=== PATIENT | female | born 1930 | race Caucasian/White ===

== ENCOUNTER 2019-01-28 08:52 | Inpatient (IN) | payer MEDICARE, MEDICAID ==
[~2019-01-28] VITALS: Ht 152.4 cm; Wt 71.7 kg
[2019-01-28] MEDS ORDERED: MORPHINE SULFATE 4 MG/ML CPJ (NOT FOR IM USE) IV STA (13:06)
[2019-01-28 13:36] LABS: BASOPHILS % 0.8 % (0.0-2.0); HEMATOCRIT. 39.5 % (36.0-48.0); HEMOGLOBIN. 13.1 g/dL (12.0-16.0); LYMPHOCYTES % 31.5 % (20.0-50.0); MEAN CORPUSCULAR VOLUME 87.2 fL (81.0-99.0); MEAN PLATELET VOLUME 9.6 fl (7.4-10.4); MONOCYTES % 7.9 % (2.0-8.0); NEUTROPHILS % 57.8 % (40.0-76.0); PLATELET 239 x1000/uL (130-400); RED BLOOD CELL COUNT 4.53 mill/uL (4.2-5.4); RED CELL DISTRIBUTION WIDTH 13.7 % (11.6-14.6)
[2019-01-28 13:40] LABS: CHLORIDE 104 mEq/L (98-107)
[2019-01-28] MEDS ORDERED: DEXTROSE 50% WATER 50ML SYRINGE IV PRN (14:15)
[2019-01-28] MEDS ORDERED: GUAIFENESIN 200MG/10ML SUGAR FREE UDC PO PRN (14:15)
[2019-01-28] MEDS ORDERED: ACETAMINOPHEN 325MG TABLET PO PRN (14:15)
[2019-01-28] MEDS ORDERED: DOCUSATE SODIUM 100MG CAPSULE PO PRN (14:15)
[2019-01-28] MEDS ORDERED: IPRATROPIUM/ALBUTEROL 0.5-3(2.5)MG/3ML NEB NEB PRN (14:15)
[2019-01-28] MEDS ORDERED: ONDANSETRON HCL 4MG/2ML INJ IV PRN (14:15)
[2019-01-28] MEDS ORDERED: NITROGLYCERIN 0.4MG TABLET SL SL PRN (14:15)
[2019-01-28] MEDS ORDERED: CLONIDINE 0.1MG TABLET PO PRN (14:15)
[2019-01-28] MEDS ORDERED: ZOLPIDEM TARTRATE 5MG TABLET PO PRN (14:15)
[2019-01-28] MEDS ORDERED: MAGNESIUM/ALUMINUM HYDROXIDE/SIMETHICONE 30ML UDC PO PRN (14:15)
[2019-01-28 16:51] VITALS: BP 156/60
[2019-01-28 16:54] VITALS: BP 156/60
[2019-01-28] MEDS: INSULIN LISPRO 100 UNITS/ML SUBCUT SCH ×2 (17:50→21:00)
[2019-01-28] MEDS ORDERED: LOSA1TAB40 PO (18:06)
[2019-01-28] MEDS ORDERED: AMLO10TA80 PO (18:06)
[2019-01-28] MEDS ORDERED: METF-416 PO (18:06)
[2019-01-28] MEDS ORDERED: METO-539 PO (18:06)
[2019-01-28] MEDS ORDERED: ISOS30TA6 PO (18:06)
[2019-01-28] MEDS: BLOOD SUGAR DIAGNOSTIC STRIP TEST SCH ×2 (18:08→21:47)
[2019-01-28] MEDS: ENOXAPARIN 40MG/0.4ML SYR SUBCUT SCH (18:15)
[2019-01-28 20:40] VITALS: BP 143/64
[2019-01-28] MEDS: LISINOPRIL 20MG TABLET PO SCH (21:46)
[2019-01-28] MEDS: METOPROLOL TARTRATE 25MG TABLET PO SCH (21:46)
[2019-01-28] MEDS: FAMOTIDINE 20MG TABLET PO SCH (21:47)
[2019-01-29 00:03] LABS: CREATINE KINASE 66 IU/L (26-192)
[2019-01-29 00:05] LABS: CREATINE KINASE MB FRACTION < 1.0 ng/mL (0.5-3.6)
[2019-01-29 00:45] VITALS: BP 112/47
[2019-01-29 04:00] VITALS: BP 111/48
[2019-01-29] MEDS: INSULIN LISPRO 100 UNITS/ML SUBCUT SCH ×4 (07:10→20:55)
[2019-01-29] MEDS: BLOOD SUGAR DIAGNOSTIC STRIP TEST SCH ×4 (07:10→20:55)
[2019-01-29 08:20] LABS: CREATINE KINASE 63 IU/L (26-192)
[2019-01-29 08:21] LABS: CREATINE KINASE MB FRACTION < 1.0 ng/mL (0.5-3.6)
[2019-01-29 08:38] VITALS: BP 147/71
[2019-01-29] MEDS: METOPROLOL TARTRATE 25MG TABLET PO SCH ×2 (08:41→20:46)
[2019-01-29] MEDS: ASPIRIN 325MG EC TABLET PO SCH (08:41)
[2019-01-29] MEDS: LISINOPRIL 20MG TABLET PO SCH ×2 (08:41→20:45)
[2019-01-29] MEDS: MORPHINE SULFATE 2 MG/ML CPJ (NOT FOR IM USE) IV PRN (10:33)
[2019-01-29 11:58] VITALS: BP 100/46
[2019-01-29 15:25] VITALS: BP 126/49
[2019-01-29] MEDS: ENOXAPARIN 40MG/0.4ML SYR SUBCUT SCH (17:20)
[2019-01-29 20:00] VITALS: BP 145/49
[2019-01-29] MEDS: TRAMADOL 50MG TABLET PO PRN (20:46)
[2019-01-29] MEDS: FAMOTIDINE 20MG TABLET PO SCH (20:46)
[2019-01-30] VITALS: BP 128/52
[2019-01-30 04:00] VITALS: BP 112/52
[2019-01-30 07:07] LABS: BASOPHILS % 0.8 % (0.0-2.0); EOSINOPHILS % 2.6 % (0.0-5.0); HEMATOCRIT. 36.5 % (36.0-48.0); LYMPHOCYTES % 32.7 % (20.0-50.0); MEAN CORPUSCULAR HEMOGLOBIN 28.7 pg (28.0-32.0); MEAN CORPUSCULAR VOLUME 87.1 fL (81.0-99.0); MEAN PLATELET VOLUME 10.3 fl (7.4-10.4); MONOCYTES % 8.9 % (2.0-8.0); PLATELET 206 x1000/uL (130-400); RED BLOOD CELL COUNT 4.19 mill/uL (4.2-5.4); RED CELL DISTRIBUTION WIDTH 13.8 % (11.6-14.6)
[2019-01-30] MEDS: BLOOD SUGAR DIAGNOSTIC STRIP TEST SCH ×4 (07:20→21:00)
[2019-01-30 07:23] LABS: CHLORIDE 107 mEq/L (98-107)
[2019-01-30 07:38] LABS: CREATINE KINASE MB FRACTION < 1.0 ng/mL (0.5-3.6); LDL CHOLESTEROL 146 mg/dL (5-100)
[2019-01-30 07:39] LABS: CREATINE KINASE 72 IU/L (26-192)
[2019-01-30 07:40] LABS: HDL CHOLESTEROL 49 mg/dL (40-59)
[2019-01-30] MEDS: INSULIN LISPRO 100 UNITS/ML SUBCUT SCH ×4 (07:50→21:00)
[2019-01-30 08:31] VITALS: BP 120/58
[2019-01-30] MEDS: ASPIRIN 325MG EC TABLET PO SCH (08:40)
[2019-01-30] MEDS: METOPROLOL TARTRATE 25MG TABLET PO SCH ×2 (08:41→20:30)
[2019-01-30] MEDS: LISINOPRIL 20MG TABLET PO SCH ×2 (08:41→20:30)
[2019-01-30] MEDS: TRAMADOL 50MG TABLET PO PRN (08:41)
[2019-01-30 12:07] VITALS: BP 121/51
[2019-01-30 16:09] VITALS: BP 135/50
[2019-01-30] MEDS: ENOXAPARIN 40MG/0.4ML SYR SUBCUT SCH (18:28)
[2019-01-30 20:00] VITALS: BP 150/55
[2019-01-30] MEDS: FAMOTIDINE 20MG TABLET PO SCH (20:30)
[2019-01-30] MEDS: ATORVASTATIN CALCIUM 20MG TABLET PO SCH (20:30)
[2019-01-31] VITALS: BP 128/46
[2019-01-31 04:00] VITALS: BP 97/56
[2019-01-31] MEDS: INSULIN LISPRO 100 UNITS/ML SUBCUT SCH ×4 (07:48→21:00)
[2019-01-31 08:00] VITALS: BP 139/49
[2019-01-31] MEDS: ASPIRIN 325MG EC TABLET PO SCH (09:25)
[2019-01-31] MEDS: LISINOPRIL 20MG TABLET PO SCH ×2 (09:27→22:31)
[2019-01-31] MEDS: METOPROLOL TARTRATE 25MG TABLET PO SCH ×2 (09:28→22:30)
[2019-01-31] MEDS: MORPHINE SULFATE 2 MG/ML CPJ (NOT FOR IM USE) IV PRN (09:29)
[2019-01-31 12:00] VITALS: BP 139/50
[2019-01-31] MEDS ORDERED: REGADENOSON 0.4 MG/5 ML IV SCH (12:15)
[2019-01-31] MEDS: PREGABALIN 25MG CAPSULE PO SCH ×2 (12:19→22:30)
[2019-01-31] MEDS: BLOOD SUGAR DIAGNOSTIC STRIP TEST SCH ×3 (13:17→21:00)
[2019-01-31 16:00] VITALS: BP 126/61
[2019-01-31] MEDS: ENOXAPARIN 40MG/0.4ML SYR SUBCUT SCH (17:36)
[2019-01-31 20:00] VITALS: BP 111/81
[2019-01-31] MEDS: ATORVASTATIN CALCIUM 20MG TABLET PO SCH (22:30)
[2019-01-31] MEDS: TRAMADOL 50MG TABLET PO PRN (22:31)
[2019-01-31] MEDS: FAMOTIDINE 20MG TABLET PO SCH (22:47)
[2019-02-01] VITALS: BP 124/64
[2019-02-01 04:00] VITALS: BP 132/60
[2019-02-01] MEDS: INSULIN LISPRO 100 UNITS/ML SUBCUT SCH (07:50)
[2019-02-01] MEDS: BLOOD SUGAR DIAGNOSTIC STRIP TEST SCH (08:15)
[2019-02-01] MEDS: METOPROLOL TARTRATE 25MG TABLET PO SCH (08:15)
[2019-02-01] MEDS: PREGABALIN 25MG CAPSULE PO SCH (08:21)
[2019-02-01] MEDS: ASPIRIN 325MG EC TABLET PO SCH (08:22)
[2019-02-01] MEDS: LISINOPRIL 20MG TABLET PO SCH (08:22)
[2019-02-01] MEDS ORDERED: REGADENOSON 0.4 MG/5 ML IV ONE (09:09)
[2019-02-01 11:43] VITALS: BP 136/65
== END 2019-02-01 13:31 | disposition home or self-care (01) | DRG 313 ==
LOC: ER 08:52 → 6WST 13:58 → EDBEDREQ 14:01 → EDBEDREQTM 14:01 → ENRESERV 14:03 → SUPCPDRO 14:05
PROVIDERS: ADMIT Internal Medicine; ATTEND Internal Medicine
DX: R07.89 Other chest pain (principal); E11.9 Type 2 diabetes mellitus without complications; I10 Essential (primary) hypertension; E78.00 Pure hypercholesterolemia, unspecified; E66.9 Obesity, unspecified; E78.5 Hyperlipidemia, unspecified; E78.1 Pure hyperglyceridemia; Z79.4 Long term (current) use of insulin; Z90.49 Acquired absence of other specified parts of digestive tract; Z68.30 Body mass index [BMI] 30.0-30.9, adult; Z79.899 Other long term (current) drug therapy; Z79.84 Long term (current) use of oral hypoglycemic drugs
CPT/HCPCS: 36415; 71045; 78452; 80061; 82550; 82553; 82962; 83036; 83735; 83880; 84443; 84484; 85379; 93005; 93017; 93306; 93970; 96374; 97162; 99285; A9500; J1650; J1815; J2270; J2785